=== PATIENT | female | born 1975 | race Caucasian/White ===

== ENCOUNTER → 2022-10-13 08:05 | Outpatient (BNVA) | payer BC, SELFPAY | PROVIDERS: PCP Internal Medicine; Visit Provider Physician Assistant Surgical | DX: A04.8 Other specified bacterial intestinal infections (principal) ==

== ENCOUNTER 2022-10-13 08:49 | Outpatient (REF) | payer BC, SELFPAY ==
--- NOTE | ~2022-10-13 | XR_ITS ---
EXAMINATION: XR CHEST CLINICAL INFORMATION: Obesity COMPARISON: None TECHNIQUE: 2 views of the chest were obtained. FINDINGS: No significant abnormality is noted involving the heart, lungs, mediastinum, bony thorax or soft tissues. XR/XR chest 2V IMPRESSION: Unremarkable examination.
--- NOTE | 2022-10-13 08:59 | ECG_ITS ---
Test Reason : obesity Blood Pressure : / mmHG Vent. Rate : 070 BPM Atrial Rate : 070 BPM P-R Int : 166 ms QRS Dur : 072 ms QT Int : 384 ms P-R-T Axes : 006 044 023 degrees QTc Int : 414 ms Poor data quality, interpretation may be adversely affected Normal sinus rhythm Normal ECG No previous ECGs available Referred By: Reginaldo Cruz Electronically Signed By:Delgado Cao
[2022-10-13 09:00] LABS: MANUAL DIFF FLAG NO
[2022-10-13 10:20] LABS: Basophils Percent Auto 0.7 % (0-2); Eosinophils Absolute Auto 0.2 X10*3/uL (0.0-0.4); Eosinophils Percent Auto 3.9 % (0-4); Hematocrit 40.4 % (37.0-47.0); Hemoglobin 13.5 g/dl (12.0-16.0); Imm Gran Abs Auto 0.02 X10*3/uL (0.00-0.03); Imm Gran Pct Auto 0.3 % (0.0-0.4); Lymphocytes Absolute Auto 1.7 X10*3/uL (1.2-4.9); Lymphocytes Percent Auto 28.4 % (20-40); Mean Corpuscular HGB Conc 33.4 g/dl (31.0-35.0); Mean Corpuscular Hemoglobin 28.7 pg (27.0-33.0); Mean Platelet Volume 9.6 fL (9.4-12.3); Monocytes Absolute Auto 0.5 X10*3/uL (0.1-1.2); Monocytes Percent Auto 7.8 % (2-11); Neutrophils Absolute Auto 3.5 x10*3/uL (2.0-8.3); Neutrophils Percent Auto 58.9 % (45-73); Platelet Count 333 X10*3/uL (160-400); Red Cell Distribution Width 12.8 % (11.0-16.0); White Blood Count 5.9 X10*3/uL (4.8-10.8)
[2022-10-13 10:30] LABS: Estimated Average Glucose 100 mg/dL; Hemoglobin A1C 113.7476 umol/L; Hemoglobin A1c % 5.1 %
[2022-10-13 11:16] LABS: Alanine Aminotransferase 34 U/L (0-31); Albumin Level 4.3 g/dL (3.5-5.0); Alkaline Phosphatase 78 U/L (39-117); Anion Gap 14 (12-20); Aspartate Amino Transferase 25 U/L (5-31); Bilirubin Total 0.6 mg/dL (0.0-1.0); Blood Urea Nitrogen 14 mg/dL (9-16); C Reactive Protein 0.64 mg/dL (< or = 0.50); Calcium 9.5 mg/dL (8.4-10.2); Carbon Dioxide 25 mmol/L (22-29); Chloride 105 mmol/L (96-108); Cholesterol 143 mg/dL; Estimated Glomerular Filt Rate > 60; Ferritin 151 ng/mL (10-250); Glucose Random 92 mg/dL (60-115); HDL Cholesterol 31 mg/dL; Insulin 17 uU/mL (2-29); Iron 60 mcg/dL (30-160); LDL Cholesterol Calculated 93 mg/dl; Percent Iron Saturation 22 % (15-50); Potassium 4.5 mmol/L (3.3-5.1); Sodium 139 mmol/L (135-145); TSH reflex Free T4 0.88 uIU/mL (0.32-4.0); Total Iron Binding Capacity 279 mcg/dL (228-428); Total Protein 7.6 g/dL (6.5-8.0); Triglycerides 96 mg/dL; Unsaturated Iron Binding 219 ug/dL; Vitamin D 25-OH Total 15.4 ng/mL (>30)
[2022-10-13 11:28] LABS: Vitamin B12 482 pg/mL (200-900)
[2022-10-14 09:03] LABS: H Pylori Breath Test Positive (Negative)
[2022-10-15 13:39] LABS: Calcium (PTHI) 9.4 mg/dL (8.6-10.2); PTHI 67 pg/mL (16-77)
[2022-10-18 13:33] LABS: Vitamin B1 9 nmol/L (8-30)
[2022-10-18 16:43] LABS: Vitamin A 34 mcg/dL (38-98)
[2022-10-18 19:04] LABS: Zinc 72 mcg/dL (60-130)
== END 2022-10-13 08:50 | disposition home or self-care (01) ==
LOC: HO.LAB 08:49
PROVIDERS: PCP Internal Medicine; Visit Provider Surgery
DX: E66.01 Morbid (severe) obesity due to excess calories (principal)
CPT/HCPCS: 36415; 71046; 80053; 80061; 82306; 82607; 82728; 82746; 83013; 83036; 83525; 83540; 83970; 84425; 84443; 84590; 84630; 85025; 86140; 93005

== ENCOUNTER → 2022-10-20 08:12 | Outpatient (BNVA) | payer BC, SELFPAY | PROVIDERS: PCP Internal Medicine; Visit Provider Surgery | DX: A04.8 Other specified bacterial intestinal infections (principal) ==